=== PATIENT | female | born 1935 | race Caucasian/White ===

== ENCOUNTER → 2017-05-25 | Outpatient (CLI) | payer MEDICARE, BC ==
[~2017-05-25] MED LIST: DIPH1TAB4; LEVA500T33 PO; OXYGENDME NAS.CANULA; ROPI4TAB PO; VENTAER INH
[2017-05-25 10:58] LABS: HEMATOCRIT 34.6 % (35.0-46.0); HEMOGLOBIN 11.6 GM/DL (11.6-15.3); MEAN CELL VOLUME 86.1 FL (80.0-100.0); MEAN CORPUSCULAR HEMOGLOBIN 28.8 PG (27.0-34.0); MEAN CORPUSCULAR HGB CONC 33.5 % (32.0-36.0); MEAN PLATELET VOLUME 7.3 FL (7.0-11.0); PLATELET COUNT 534 TH/MM3 (150-450); RED BLOOD COUNT 4.02 MIL/MM3 (4.00-5.30); RED CELL DISTRIBUTION WIDTH 13.3 % (11.6-17.2); WHITE BLOOD COUNT 13.7 TH/MM3 (4.0-11.0)
[2017-05-25 11:09] LABS: INTERNATIONAL NORMALIZED RATIO 1.2 RATIO; PROTHROMBIN TIME - PATIENT 11.8 SEC (9.8-11.6)
[2017-05-25 11:27] LABS: BICARBONATE 26.1 MEQ/L (21.0-32.0); CALCIUM 9.7 MG/DL (8.5-10.1); CREATININE 0.82 MG/DL (0.50-1.00)
--- NOTE | 2017-05-26 18:23 | EKG ---
Date Performed: 05/25/2017 Time Performed: 10:56:21 PTAGE: 82 years EKG: Sinus rhythm WITH SINUS ARRHYTHMIA NORMAL ECG Compared to PREVIOUS TRACING , no change. PREVIOUS TRACING DOCTOR: Toby Brown Interpretating Date/Time 05/26/2017 18:20:47
== END ==
LOC: CPRE 10:30
PROVIDERS: ATTEND Internal Medicine
DX: Z01.810 Encounter for preprocedural cardiovascular examination (principal); Z01.812 Encounter for preprocedural laboratory examination; C34.90 Malignant neoplasm of unspecified part of unspecified bronchus or lung; R59.0 Localized enlarged lymph nodes; R22.2 Localized swelling, mass and lump, trunk
CPT/HCPCS: 36415; 80048; 85027; 85610; 85730; 93005

== ENCOUNTER 2017-05-29 13:12 | Day surgery (SDC) | payer MEDICARE, BC ==
--- NOTE | 2017-05-24 15:57 | MB ---
cc: El Flynn MD, Barry MD DATE OF CONSULT: 05/29/2017 HISTORY OF PRESENT ILLNESS: Ms. Cline is an 82-year-old white female who presents today with a 2-week history of intermittent hemoptysis, scant amount, but consistent, and a cough for 4 or 5 weeks. Initially, antibiotics were given, ineffective, so a CT scan was done and she has a 6 cm cavitary mass in the right lower lobe with associated adenopathy. This is suspicious for malignancy. She has been remarkably healthy her entire life. She has never smoked, had no previous pulmonary disease, no prior history of malignancy. She has not lost her appetite, lost weight. She is in no pain. The cough and scant hemoptysis are really her only symptoms. No fever. PAST MEDICAL HISTORY: Remarkably negative. She has some tremors, but she has had no previous hospitalizations, no major surgeries, no major medical illnesses. MEDICATIONS: The only prescription medicine is ropinirole, which is given for tremors. ALLERGIES: NO ALLERGIES. FAMILY HISTORY: Father of cancer, mother of heart failure. Lost a brother to cancer as well and a son who of pneumonia. Another son who lives in [place]. SOCIAL HISTORY: . Living with her of 50 years. She is originally from [place]. She arrived in this country in 1964. Lived in [place] for many years, has lived in this area for 18 years. 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 She has had tuberculin skin tests in the past. They have never been positive. No unusual animal exposure. No alcohol use. REVIEW OF SYSTEMS: Weight is stable. Appetite is good. No visual complaints. No chest pain. No swelling. No musculoskeletal complaints. No history of severe reflux or ulcer disease. PHYSICAL EXAMINATION: Blood pressure 100/50, pulse 100, temp is 98, RR 18, sat 97% room air. Pharynx is clear. No adenopathy palpable in the neck or the supraclavicular region. She does have some wheezing and congestion at the right base, otherwise clear. Regular rhythm, no harsh murmur. Neck veins are flat. No edema or cyanosis. Ms. Cline presents with a mass in her right lower lobe with associated hilar and paramediastinal adenopathy very suspicious for malignancy. I have suggested to her that we proceed with a diagnostic bronchoscopy. I have reviewed the procedure in simple terms so that she understands what it involves and what we can expect. I have also discussed complications including although not limited to bleeding or pneumothorax or anesthetic complications. She also understands that this test may not be diagnostic, in which case we might have to proceed to additional studies. She is agreeable to proceed. We are doing preoperative planning and schedule this for next week. Further diagnostic and/or therapeutic intervention will depend on results of this study. R. Ozzie Flynn MD RSW/TI , 04:26 PM , 05:10 PM
[~2017-05-29] VITALS: Ht 162.6 cm; Wt 63.2 kg
[~2017-05-29 13:12] MED LIST changes: -DIPH1TAB4; -LEVA500T33 PO; -OXYGENDME NAS.CANULA; -VENTAER INH
[2017-05-29] MEDS ORDERED: DIPH1TAB4 (13:30)
[2017-05-29 14:04] VITALS: BP 128/67; PULSE 110; RESP 18; O2SAT 96
[2017-05-29] MEDS ORDERED: RESP: LIDOCAINE HCL 4% PF 5 ML NEB ONE (15:32)
[2017-05-29] MEDS ORDERED: RESP: ALBUTEROL CONC 2.5 MG/0.5 ML NEB ONE (15:32)
[2017-05-29] MEDS ORDERED: RESP: ALBUTEROL 2.5 MG/IPRATROPIUM 0.5 MG NEB (PRN) NEB ×2 (17:15→21:15)
[2017-05-29] MEDS ORDERED: DO NOT ADM ANY ANTICOAGULANT DRUGS PRN (17:30)
--- NOTE | 2017-05-29 17:56 | MR ---
cc: El Flynn MD DATE: 05/29/2017 PROCEDURE PERFORMED: Bronchoscopy. INDICATIONS FOR PROCEDURE: Mediastinal adenopathy with right lower lobe mass with cavity, suspected malignancy. DETAILS OF PROCEDURE: After informed consent was obtained, the patient underwent diagnostic bronchoscopy with general anesthesia. Initial examination of the airway revealed a normal left upper lobe, middle lobe and lower lobes. Examination of the right main stem bronchus was normal. Right upper lobe was normal, but there was irregularity to the mucosa and thickened mucosa in the bronchus intermedius leading into the right lower lobe. There was also irregular plaquing of 2 of the segments of the right lower lobe. No obvious endobronchial mass was noted. After inspection of the airway in light of the abnormal CT scan, endobronchial ultrasound was used to identify subcarinal lymph nodes. These were aspirated several times and a preliminary CORAL interpretation was malignant cells were present. Two more passes were obtained from the subcarinal station #7 lymph node and submitted for cytology. Right lower lobe was then washed extensively, brushed for cytology and 2 bronchial biopsies were obtained from the right lower lobe from the areas of irregular mucosal thickening and plaquing. In summary, there appears to be a malignancy originating in the right lower lobe. A definitive identity will require further investigation on material submitted. Material also submitted for cultures. She tolerated the procedure well, without apparent complication. No excessive bleeding. Being prepared for transfer to recovery at present. El Flynn MD RSW/CORTNEY , 05:17 PM , 05:55 PM
[2017-05-29] MEDS ORDERED: methylPREDNISolone SOD SUCC 125 MG/2 ML VIAL ONE (18:05)
[2017-05-29] MEDS ORDERED: *RESP: ALBUTEROL 2.5 MG/3 ML NEB (PRN) PERIprocedural Use ONLY NEB ONE (18:05)
[2017-05-29] MEDS ORDERED: methylPREDNISolone SOD SUCC 125 MG/2 ML VIAL IV ONE (18:15)
[2017-05-29] MEDS ORDERED: SODIUM CHLORIDE 0.9% FLUSH 10 ML FLUSH IV FLUSH PRN (21:15)
[2017-05-29] MEDS ORDERED: NALOXONE HCL 0.4 MG/ML AMP IV PUSH PRN (21:15)
[2017-05-29] MEDS ORDERED: RESP: ALBUTEROL 2.5 MG/IPRATROPIUM 0.5 MG NEB (SCH) NEB (22:00)
--- NOTE | 2017-05-29 22:10 | RADRPT ---
EXAM DATE/TIME: 05/29/2017 21:28 [facility] COMPARISON: No previous studies available for comparison. INDICATIONS : Post bronchoscope. MEDICAL HISTORY : None. SURGICAL HISTORY : Hysterectomy. ENCOUNTER: Initial ACUITY: 1 day PAIN SCORE: 0/10 LOCATION: Bilateral chest FINDINGS: A single view of the chest demonstrates right-sided perihilar and basilar consolidation most characte ristic of aspiration or pneumonia. Heart size enlarged. Minimal left basilar opacity. CONCLUSION: 1. No pneumothorax status post reported bronchoscopy. Consolidation at right lung base. Bigg Gresham MD on May 29, 2017 at 22:07 Board Certified Radiologist. This report was verified electronically.
--- NOTE | 2017-05-29 23:52 | HHI.HP ---
HPI Service [facility] Primary Care Physician Non-Staff Admission Diagnosis Diagnoses: Travel History International Travel<30 Days: No Contact w/Intl Traveler <30 Da: No Traveled to Known Affected Are: No History of Present Illness History from patient, patient's crane engineer with the phone, and nursing staff. Patient reported that she has been short of breath for the past 3 weeks. She reports she was also extremely weak and just not having any energy. She reports she was wheezing throughout the day and night. Coughing quite a bit. Reports of copious sputum production. States she had to use napkins after napkins for this. There was also blood in her sputum initially and now that has resolved. However, patient denies any fever. Denies peripheral edema. Denies dizziness/chest pain/palpitations/syncopal episodes. Reports of extreme weakness and not eating well for past 3 weeks. He has lost 20 pounds in 3 weeks. Not on antibiotics as an outpatient. She denies any prior medical history apart from restless leg syndrome which was just diagnosed about 3 weeks ago simply because she was complaining of restless lack symptoms when she cannot sleep due to dyspnea. Today, patient underwent bronchoscopy with her crane engineer. According to the nurses, patient was saturating well on room air 94%. However post procedure, patient required 4 L nasal cannula to keep the O2 sat at 94%. She was however asymptomatic. Not in respiratory distress. Dr Brown - PCP from [place] Review of Systems Except as stated in HPI: all other systems reviewed are Neg Past Family Social History Past Medical History chronic left shoulder dislocation which she usually puts it back herself Restless Syndrome - was told of this only because she was having symptoms in past 3 weeks due to dyspnea Past Surgical History bronchoscopy today right finger sx due to trauma from saw Allergies: Coded Allergies: No Known Allergies (Verified Allergy, Unknown, 05/29/17) Family History mother-heart problem Social History quit smoking 50yrs ; maybe smoked only for about 1 yr, 3 cigarettes a day no etoh abuse no drugs lives with of 50yrs marriage- has not been driving for 2 yrs Physical Exam Vital Signs Vital Signs Date Time Temp Pulse Resp B/P (MAP) Pulse Ox O2 Delivery O2 Flow Rate FiO2 05/29/17 20:30 96 20 106/57 (73) 90 Nasal Cannula 4 05/29/17 19:30 96 20 106/57 (73) 90 Nasal Cannula 4 18 18:30 93 20 109/61 (77) 92 Nasal Cannula 4 05/29/17 18:15 93 20 110/61 (77) 91 Nasal Cannula 4 05/29/17 18:00 93 20 111/57 (75) 92 Nasal Cannula 4 05/29/17 17:45 93 20 113/56 (75) 95 05/29/17 17:29 97.7 99 20 122/58 (79) 93 Simple Mask 6 05/29/17 14:04 110 18 128/67 (87) 96 Physical Exam GENERAL: This is a well-nourished, well-developed patient, in no apparent distress. Saturating 94% on 5 L nasal cannular SKIN: No rashes, ecchymoses or lesions. Cool and dry. HEAD: Atraumatic. Normocephalic. No temporal or scalp tenderness. EYES: No scleral icterus. No injection or drainage. ENT: Nose without bleeding, purulent drainage or septal hematoma. . Airway patent. NECK: Trachea midline. No JVD . Supple, nontender, no meningeal signs. CARDIOVASCULAR: Regular rate and rhythm without murmurs, gallops, or rubs. RESPIRATORY: Bilaterally decreased air entry. No active wheezing or rales. GASTROINTESTINAL: Abdomen soft, non-tender, nondistended. No guarding. MUSCULOSKELETAL: Extremities without clubbing, cyanosis, or edema. No calf tenderness. NEUROLOGICAL: Awake and alert. Motor and sensory grossly within normal limits Normal speech. Laboratory Date/Time Source Procedure Growth Status 05/29/17 16:45 Bronchial Washings Right Lower Lobe Fungal Smear Pending Received 05/29/17 16:45 Bronchial Washings Right Lower Lobe Fungal Culture Pending Received Caprini VTE Risk Assessment Caprini VTE Risk Assessment: Mod/High Risk (score >= 2) Caprini Risk Assessment Model Point Value = 1 Point Value = 2 Point Value = 3 Point Value = 5 Age 41-60 Minor surgery BMI > 25 kg/m2 Swollen legs Varicose veins or History of unexplained or recurrent spontaneous Oral contraceptives or hormone replacement Sepsis (< 1 month) Serious lung disease, including pneumonia (< 1 month) Abnormal pulmonary function Acute myocardial infarction Congestive heart failure (< 1 month) History of inflammatory bowel disease Medical patient at bed rest Age 61-74 Arthroscopic surgery Major open surgery (> 45 min) Laparoscopic surgery (> 45 min) Malignancy Confined to bed (> 72 hours) Immobilizing plaster cast Central venous access Age >= 75 History of VTE Family history of VTE Factor V Leiden Prothrombin [id number] Lupus anticoagulant Anticardiolipin antibodies Elevated serum homocysteine Heparin-induced thrombocytopenia Other congenital or acquired thrombophilia Stroke (< 1 month) Elective arthroplasty Hip, pelvis, or leg fracture Acute spinal cord injury (< 1 month) Prophylaxis Regimen Total Risk Factor Score Risk Level Prophylaxis Regimen 0-1 Low Early ambulation 2 Moderate Order ONE of the following: *Sequential Compression Device (SCD) *Heparin 5000 units SQ BID 3-4 Higher Order ONE of the following medications: *Heparin 5000 units SQ TID *Enoxaparin/Lovenox 40 mg SQ daily (WT < 150 kg, CrCl > 30 mL/min) *Enoxaparin/Lovenox 30 mg SQ daily (WT < 150 kg, CrCl > 10-29 mL/min) *Enoxaparin/Lovenox 30 mg SQ BID (WT < 150 kg, CrCl > 30 mL/min) AND/OR *Sequential Compression Device (SCD) 5 or more Highest Order ONE of the following medications: *Heparin 5000 units SQ TID (Preferred with Epidurals) *Enoxaparin/Lovenox 40 mg SQ daily (WT < 150 kg, CrCl > 30 mL/min) *Enoxaparin/Lovenox 30 mg SQ daily (WT < 150 kg, CrCl > 10-29 mL/min) *Enoxaparin/Lovenox 30 mg SQ BID (WT < 150 kg, CrCl > 30 mL/min) AND *Sequential Compression Device (SCD) Assessment and Plan Assessment and Plan Impression: Dyspnea Status post bronchoscopy with findings suggestive of malignancy Hypoxia post bronchoscopy Suspects underlying postobstructive pneumonia. History of chronic left shoulder dislocation which she usually puts it back herself Restless Syndrome - was told of this only because she was having symptoms in past 3 weeks due to dyspnea Plan: Will admit patient under observation for hypoxia. We'll try to wean her off oxygen overnight. PT evaluation. Chest x-ray stat. Chest x-ray personally reviewed. Evidence of pneumothorax. Obtain basic labs. Labs from May 25, 2017 reviewed. Suspects the patient is also having underlying postobstructive pneumonia. She does report of cough. No fever. Hypoxia may be partly due to that. Discussed this with patient's crane engineer over the fall. At this point, advised to hold off on antibiotics since the bronchial washings and cultures will be likely resulted by the morning. However if patient spikes fever, advised to start her on antibiotics. We'll follow her clinically and follow her for fever, leukocytosis. Case management consult. First possibility the patient may need home oxygen at discharge because of extensive procedural manipulation and underlying infection with possible malignancy. Discussed Condition With Patient, patient's crane engineer, nursing staff Mitchell Lee MD May 29, 2017 23:52
[2017-05-30] MEDS ORDERED: SODIUM CHLORIDE 0.9% FLUSH 10 ML FLUSH IV FLUSH SCH (09:00)
[2017-05-30] MEDS ORDERED: RESP: ALBUTEROL 2.5 MG/3 ML NEB (PRN) INH (09:30)
--- NOTE | 2017-05-30 09:31 | HHI.PR ---
Subjective Remarks Follow-up hypoxia. Currently on room air. She is feeling better because she is eating more. Still weak. Discussed with pulmonary and nursing Objective Vitals Vital Signs Date Time Temp Pulse Resp B/P (MAP) Pulse Ox O2 Delivery O2 Flow Rate FiO2 05/30/17 08:00 98.3 90 16 115/65 (82) 92 Room Air 05/30/17 07:00 91 15 93/65 (74) 96 Nasal Cannula 2 05/30/17 04:01 77 16 114/58 (76) 93 Nasal Cannula 4 05/30/17 03:13 79 16 107/59 (75) 92 Nasal Cannula 4 05/30/17 02:00 80 18 98/57 (71) 93 Nasal Cannula 4 05/30/17 00:00 88 20 105/59 (74) 94 Nasal Cannula 4 05/29/17 23:00 89 20 102/58 (73) 91 Nasal Cannula 4 05/29/17 22:00 86 16 98/54 (69) 92 Nasal Cannula 4 05/29/17 21:00 87 20 103/58 (73) 92 Nasal Cannula 4 05/29/17 20:30 96 20 106/57 (73) 90 Nasal Cannula 4 05/29/17 19:30 96 20 106/57 (73) 90 Nasal Cannula 4 05/29/17 18:30 93 20 109/61 (77) 92 Nasal Cannula 4 05/29/17 18:15 93 20 110/61 (77) 91 Nasal Cannula 4 05/29/17 18:00 93 20 111/57 (75) 92 Nasal Cannula 4 05/29/17 17:45 93 20 113/56 (75) 95 05/29/17 17:29 97.7 99 20 122/58 (79) 93 Simple Mask 6 05/29/17 14:04 110 18 128/67 (87) 96 I/O 05/29/17 05/29/17 05/29/17 05/30/17 05/30/17 05/30/17 07:00 15:00 23:00 07:00 15:00 23:00 Intake Total 200 ml Balance 200 ml Intake Oral 200 ml Imaging Last Impressions Chest X-Ray 05/29/17 0000 Signed Impressions: Service Date/Time: Monday, May 29, 2017 21:28 - CONCLUSION: 1. No pneumothorax status post reported bronchoscopy. Consolidation at right lung base. Bigg Gresham MD Objective Remarks GENERAL: This is a well-nourished, well-developed patient, in no apparent distress. Saturating 94% on room air SKIN: No rashes, ecchymoses or lesions. Cool and dry. CARDIOVASCULAR: Regular rate and rhythm without murmurs, gallops, or rubs. RESPIRATORY: Bilaterally decreased air entry. No active wheezing or rales. GASTROINTESTINAL: Abdomen soft, non-tender, nondistended. No guarding. MUSCULOSKELETAL: Extremities without clubbing, cyanosis, or edema. No calf tenderness. NEUROLOGICAL: Awake and alert. Motor and sensory grossly within normal limits Normal speech. Procedures Bronch A/P Problem List: (1) Dyspnea ICD Code: R06.00 - Dyspnea, unspecified Assessment and Plan Dyspnea status post bronchoscopy with findings suggestive of malignancy. Improved. She is ambulating without difficulty. Chest x-ray without pneumothorax or acute findings. Discussed with patient's pulmonary, she can be discharged home with outpatient follow-up to discuss results of biopsy. Albuterol MDI as needed Hypoxia post bronchoscopy. Resolved currently on room air History of chronic left shoulder dislocation and Restless Syndrome - was told of this only because she was having symptoms in past 3 weeks due to dyspnea Discharge Planning Discharge patient to home Condition on discharge: Improved Regular Diet as tolerated Ad Sonia activity Rx written: Albuterol MDI Follow-up with primary care physician and pulmonary Problem Qualifiers (1) Dyspnea: Qualified Codes: R06.00 - Dyspnea, unspecified Virgil Flanagan MD May 30, 2017 09:31
[2017-05-30] MEDS ORDERED: VENTAER INH (09:32)
--- NOTE | 2017-05-30 09:33 | HHI.DCPOC ---
Discharge Care Plan Diagnosis: (1) Dyspnea Your Health Problems Are: Difficulty with ADL Exercise Tolerance Goals to Promote Your Health * To prevent worsening of your condition and complications * To maintain your health at the optimal level Directions to Meet Your Goals Take your medications as prescribed Follow your dietary instruction Follow activity as directed Keep your appointments as scheduled Take your immunizations and boosters as scheduled If your symptoms worsen call your PCP, if no PCP go to Urgent Care Center or Emergency Room Smoking is Dangerous to Your Health. Avoid second hand smoke Call the 24-hour hour crisis hotline for domestic abuse at Virgil Flanagan MD May 30, 2017 09:33
--- NOTE | 2017-05-30 09:33 | HHI.FF ---
Face to Face Verification Diagnosis: (1) Dyspnea Physical Therapy Order: Evaluate and Treat, Improve ambulation, Strength and gait training Home Health Nursing Order: Medical education Signs/symptoms of disease process Oxygen administration education Nursing assessment with vital signs I have seen patient Carley Cline on 05/30/17. My clinical findings support the need for the requested home health care services because: Patient has SOB I certify that my clinical findings support that this patient is homebound because: Unsafe to leave home unassisted Virgil Flanagan MD May 30, 2017 09:33
[2017-05-30] MEDS ORDERED: OXYGENDME NAS.CANULA (09:34)
[2017-05-30] MEDS ORDERED: RESP: ALBUTEROL 2.5 MG/IPRATROPIUM 0.5 MG NEB (SCH) INH (10:00)
[2017-05-30 10:25] VITALS: BP 99/60; PULSE 100; RESP 20; TEMP 97.9; O2SAT 95
== END 2017-05-30 10:30 | disposition home or self-care (01) ==
LOC: HROP 13:12 → HRIP 13:17 → HROP 15:30 → HRIP 15:30 → HPAC 05-30 07:53 → HROP 05-30 10:30
PROVIDERS: ATTEND Internal Medicine
DX: C34.31 Malignant neoplasm of lower lobe, right bronchus or lung (principal); R04.2 Hemoptysis; R09.02 Hypoxemia; M24.412 Recurrent dislocation, left shoulder
CPT/HCPCS: 00520; 31653; 71045; 87015; 87070; 87102; 87116; 87205; 87206; 88112; 88172; 88173; 88305; 88341; 88342; 94618; 94664; J2930; J3010; J7611; J7613; 88333

== ENCOUNTER 2017-06-22 08:17 | Day surgery (SDC) | payer MEDICARE, BC ==
[~2017-06-22] VITALS: Ht 162.6 cm; Wt 59.1 kg
[2017-06-22] VITALS (7 sets, daily range): BP systolic 101–126; BP diastolic 60–75; PULSE 80–109; RESP 16; TEMP 98; O2SAT 92–99
[~2017-06-22 08:17] MED LIST changes: +DIPH1TAB4; +OXYGENDME NAS.CANULA; +VENTAER INH
[2017-06-22] MEDS ORDERED: MEGE40TA PO (08:41)
[2017-06-22] MEDS ORDERED: PRED10 PO (08:41)
[2017-06-22] MEDS ORDERED: HYDR5SYP10 PO (08:41)
[2017-06-22] MEDS ORDERED: POVIDONE IODINE 5% (ANTISEPSIS KIT) 4 APPLICATIONS EACH NARE SCH (08:45)
[2017-06-22] MEDS ORDERED: ceFAZolin 2 GM PREMIX 50 ML - implanted port/tunneled catheter insertion IV SCH (08:45)
[2017-06-22] MEDS ORDERED: CHLORHEXIDINE GLUCONATE 2 % 1 PACK (2 CLOTHS) TOPICAL SCH (08:45)
[2017-06-22] MEDS ORDERED: VANCOMYCIN 1000 MG/NS 250 ML - implanted port/tunneled catheter IV SCH ×2 (08:45)
[2017-06-22] MEDS ORDERED: SODIUM CHLORIDE 0.9% 1000 ML IV SCH (09:00)
[2017-06-22] MEDS ORDERED: LIDOCAINE 1%/EPINEPHrine 1:100,000 SOLN 30 ML VIAL ONE (11:06)
[2017-06-22] MEDS ORDERED: MIDAZOLAM HCL 5 MG/5 ML VIAL ONE (11:10)
[2017-06-22] MEDS ORDERED: fentaNYL CITRATE 250 MCG/5 ML AMP ONE (11:10)
--- NOTE | 2017-06-22 12:44 | PD.RAD ---
Post Procedure Progress Note Pre Procedure Diagnosis: (1) Lung mass (2) Dyspnea Post Procedure Diagnosis: (1) Dyspnea (2) Lung mass Procedure Date: Jun 22, 2017 Supervising Radiologist: Luciano Seals Proceduralist/Assist: Raymundo Reyes, RT(R), Jairo Barrera, RT(R) Anesthesia: Local, Analgesia, Conscious Sedation Plan of Activity Patient to Unit: ROPU Patient Condition: Good See PACS Report for procedural detail/treatment Central Venous Access Device Procedure 1 Right Internal Jugular Infusaport Placement single lumen Divehi: 8 Luciano Seals MD Jun 22, 2017 12:44
[2017-06-22] MEDS ORDERED: SODIUM CHLORIDE 0.9% FLUSH 10 ML FLUSH IVF PRN (12:45)
--- NOTE | 2017-06-22 13:56 | RADRPT ---
EXAM DATE/TIME: 06/22/2017 12:43 [facility] COMPARISON: No previous studies available for comparison. INDICATIONS : Patient presents with lung cancer in need of port placement for chemotherapy. MEDICAL HISTORY : Restless leg syndrome Non Small cell lung cancer, adenocarcinoma SURGICAL HISTORY : Bronch ENCOUNTER: Initial ACUITY: 1 month PAIN SCORE: 0/10 LOCATION: N/A FLUORO TIME: 1.2 minutes IMAGE SERIES: 1 SEDATION TIME: 60 minutes ACCESS: Right internal jugular vein SEDATION: 1.) 4 mg midazolam (Versed) IV 2.) 200 mcg fentanyl (Sublimaze) IV Prophylactic antibiotics were administered with appropriate pre-procedure timing. Vancomycin within 2 hours of procedure, Ancef (or alternative) within 1 hour of procedure. DEVICE: 1. 8 Khmer single lumen Xcela Plus Port PROCEDURE : 1. Continuous pulse oximetry and EKG monitoring. 2. Intravenous conscious sedation. 3. Ultrasound guidance for venous access. 4. Fluoroscopic guided implantable central venous port placement. The patient was placed supine. The neck was prepped in sterile fashion. Full sterile technique was u sed, including cap, mask, sterile gloves and gown, and a large sterile sheet. Hand hygiene and 2% ch lorhexidine Betadine was utilized per protocol for cutaneous antisepsis with appropriate dry time for site. Sterile gel and sterile probe cover were utilized for ultrasound guidance. The skin and sub cutaneous tissues were infiltrated with local anesthetic solution. Under direct ultrasound guidance, central venous access was accomplished in the targeted vessel. The ultrasound images depicting access guidance were stored and saved to PACS for permanent record. A s ubcutaneous pocket was created using blunt dissection. The port was introduced to the pocket. The c atheter tubing was fed through a subcutaneous tunnel to the venotomy site. The catheter tubing was c ut to a suitable length and then was introduced through a valved Peel-Away sheath and positioned with catheter tubing tip at the cavo-atrial junction level. The pocket incision was closed with subcutic ular Vicryl suture. Steri-Strips were applied. The port was flushed and locked with heparin solutio n per protocol. Sterile dressing was applied to the site. The patient tolerated the procedure well. Conscious sedation was performed with the prescribed dosages and duration as above in the presence of an independent trained radiology nurse to assist in the monitoring of the patient. EKG and oximetry remained stable throughout the procedure. The patient tolerated the procedure well and there were no complications. The patient was sent to post anesthesia recovery in stable condition. CONCLUSION: Uncomplicated ultrasound and fluoroscopic guided implanted central venous port catheter placement as described in detail above. An 8 Khmer Power port was placed. Luciano Seals MD on June 22, 2017 at 13:53 Board Certified Radiologist. This report was verified electronically.
== END 2017-06-22 14:30 | disposition home or self-care (01) ==
LOC: HROP 08:17 → HRIP 08:20 → HROP 14:30
PROVIDERS: ATTEND Internal Medicine Hematology & Oncology
DX: C34.91 Malignant neoplasm of unspecified part of right bronchus or lung (principal); R06.00 Dyspnea, unspecified; G25.81 Restless legs syndrome
CPT/HCPCS: 36561; 76937; 77001; 99152; 99153; C1788; J0690; J1642; J2250; J3010; J3370; J7030; J7050

== ENCOUNTER 2017-08-20 13:33 | Observation (INO) | payer MEDICARE, BC ==
[~2017-08-20] VITALS: Ht 157.5 cm; Wt 50.0 kg
[~2017-08-20 13:33] MED LIST changes: -DIPH1TAB4; +HYDR5SYP10 PO; +MEGE40TA PO; -OXYGENDME NAS.CANULA; +PRED10 PO; -VENTAER INH
[2017-08-20] MEDS ORDERED: IOHEXOL 350 MG/ML 10 ML VIAL (for RAD DIAG) IVCONTRAST ONE (13:34)
[2017-08-20 14:00] VITALS: BP 113/68; PULSE 109; RESP 15; TEMP 97; O2SAT 98
[2017-08-20 15:04] VITALS: BP 124/71; PULSE 103; RESP 20; O2SAT 94
[2017-08-20 15:39] VITALS: BP 124/71; PULSE 105; RESP 20
[2017-08-20] MEDS ORDERED: SODIUM CHLORIDE 0.9% FLUSH 10 ML FLUSH IVF PRN (16:00)
--- NOTE | 2017-08-20 16:08 | PD ---
HPI Chief Complaint: Abnormal Results Time Seen by Provider: 15:06 Travel History International Travel<30 days: No Contact w/Intl Traveler<30days: No Traveled to known affect area: No History of Present Illness HPI 82-year-old female with PMH of non-small cell lung cancer presents the ED for evaluation of hypotension and tachycardia. Patient was at Dr. Yang's office this morning. At discharge the nurse noted the vitals and sent the patient to the ED. On presentation the patient complains of mid low back pain, unchanged from her previous back pain. She states that it was worse this morning when she woke up and she thought that maybe she had "slept wrong." She took a hydrocodone before her visit this morning. She denies chest pain, palpitations, shortness of breath, abdominal pain, nausea, vomiting, dysuria. She states that she "just wants to go home." is at bedside. He reports that they discontinue chemotherapy about 2 weeks ago. Patient is currently undergoing radiation treatment only. He states that the tumor is in the right lung in the lymph nodes. PFSH Past Medical History Cancer: No Cardiovascular Problems: No Diabetes: No Endocrine: No Genitourinary: No Hepatitis: No Hiatal Hernia: No Immune Disorder: No Musculoskeletal: Yes (BACK PAIN) Neurologic: Yes (RESTLESS LEG) Psychiatric: No Reproductive: No Respiratory: Yes (WHEEZING, SOB, COUGHING) Immunizations Current: No Thyroid Disease: No Past Surgical History Abdominal Surgery: No AICD: No Cardiac Surgery: No Ear Surgery: No Endocrine Surgery: No Eye Surgery: No Genitourinary Surgery: No Gynecologic Surgery: No Hysterectomy: Yes Joint Replacement: No Oral Surgery: No Pacemaker: No Thoracic Surgery: No Other Surgery: Yes Social History Alcohol Use: Yes (OCC) Tobacco Use: No Substance Use: No Allergies-Medications (Allergen,Severity, Reaction): Coded Allergies: No Known Allergies (Verified Allergy, Unknown, 06/22/17) Reported Meds & Prescriptions Reported Meds & Active Scripts Active Reported Hydrocodone-Homatropine Liq 5-1.5 Mg/5 Ml Syrp 5 Ml PO Q6H PRN Ropinirole 4 Mg Tab 4 Mg PO HS Review of Systems Except as stated in HPI: all other systems reviewed are Neg Physical Exam Narrative GENERAL: Pleasant, frail white female no acute distress. SKIN: Focused skin assessment warm/dry. HEAD: Atraumatic. Normocephalic. EYES: Pupils equal and round. No scleral icterus. No injection or drainage. ENT: No nasal bleeding or discharge. Mucous membranes pink and moist. NECK: Trachea midline. No JVD. CARDIOVASCULAR: Regular rate and rhythm. No murmur appreciated. RESPIRATORY: No accessory muscle use. Right-sided lung sounds somewhat diminished, rhonchi noted. Left lung clear. GASTROINTESTINAL: Abdomen soft, non-tender, nondistended. Hepatic and splenic margins not palpable. MUSCULOSKELETAL: No obvious deformities. No clubbing. No cyanosis. No edema. NEUROLOGICAL: Awake and alert. No obvious cranial nerve deficits. Motor grossly within normal limits. Normal speech. PSYCHIATRIC: Appropriate mood and affect; insight and judgment normal. Data Data Last Documented VS Vital Signs Date Time Temp Pulse Resp B/P (MAP) Pulse Ox O2 Delivery O2 Flow Rate FiO2 08/20/17 20:10 110 20 126/60 (82) 100 Room Air 08/20/17 14:00 97.0 Orders Orders Complete Blood Count With Diff (08/20/17 15:59) Comprehensive Metabolic Panel (08/20/17 15:59) Act Partial Throm Time (Ptt) (08/20/17 15:59) Prothrombin Time / Inr (Pt) (08/20/17 15:59) Iv Access Insert/Monitor (08/20/17 15:59) Electrocardiogram (08/20/17 15:59) Ecg Monitoring (08/20/17 15:59) Oximetry (08/20/17 15:59) Chest, Single Ap (08/20/17 15:59) Ct Pulmonary Angiogram (08/20/17 15:59) Sodium Chloride 0.9% Flush (Ns Flush) (08/20/17 16:00) Tramadol (Ultram) (08/20/17 16:15) Iohexol 350 Inj (Omnipaque 350 Inj) (08/20/17 13:34) Troponin I (08/20/17 18:23) Ckmb (Isoenzyme) Profile (08/20/17 18:23) Electrocardiogram (08/20/17 ) Sodium Chlor 0.9% 1000 Ml Inj (Ns 1000 M (08/20/17 18:45) Acetamin-Hydrocod 325-5 Mg (Ider 5-325 (08/20/17 20:00) Sodium Chlor 0.9% 1000 Ml Inj (Ns 1000 M (08/20/17 19:50) Admit Order (Ed Use Only) (08/20/17 20:52) Labs Laboratory Tests Test 08/20/17 16:20 White Blood Count 7.3 TH/MM3 Red Blood Count 3.95 MIL/MM3 Hemoglobin 10.7 GM/DL Hematocrit 32.4 % Mean Corpuscular Volume 81.9 FL Mean Corpuscular Hemoglobin 26.9 PG Mean Corpuscular Hemoglobin Concent 32.9 % Red Cell Distribution Width 20.7 % Platelet Count 388 TH/MM3 Mean Platelet Volume 7.0 FL Neutrophils (%) (Auto) 87.1 % Lymphocytes (%) (Auto) 2.5 % Monocytes (%) (Auto) 7.6 % Eosinophils (%) (Auto) 2.2 % Basophils (%) (Auto) 0.6 % Neutrophils # (Auto) 6.4 TH/MM3 Lymphocytes # (Auto) 0.2 TH/MM3 Monocytes # (Auto) 0.6 TH/MM3 Eosinophils # (Auto) 0.2 TH/MM3 Basophils # (Auto) 0.0 TH/MM3 CBC Comment DIFF FINAL Differential Comment Prothrombin Time 10.9 SEC Prothromb Time International Ratio 1.1 RATIO Activated Partial Thromboplast Time 26.9 SEC Blood Urea Nitrogen 9 MG/DL Creatinine 0.57 MG/DL Random Glucose 88 MG/DL Total Protein 6.9 GM/DL Albumin 2.7 GM/DL Calcium Level 9.0 MG/DL Alkaline Phosphatase 158 U/L Aspartate Amino Transf (AST/SGOT) 18 U/L Alanine Aminotransferase (ALT/SGPT) 14 U/L Total Bilirubin 0.3 MG/DL Sodium Level 136 MEQ/L Potassium Level 3.8 MEQ/L Chloride Level 103 MEQ/L Carbon Dioxide Level 21.6 MEQ/L Anion Gap 11 MEQ/L Estimat Glomerular Filtration Rate 101 ML/MIN Total Creatine Kinase 26 U/L Troponin I LESS THAN 0.02 NG/ML MDM Medical Decision Making Medical Screen Exam Complete: Yes Emergency Medical Condition: Yes Differential Diagnosis Lung mass versus PE versus pneumonia versus dehydration versus dysrhythmia versus other Narrative Course 82-year-old female with PMH of non-small cell lung cancer presents the ED for evaluation of hypotension and tachycardia. This occurred in the oncology building just before arrival. On presentation patient complains of back pain. No other complaints. She states that she wants to go home. Patient was initially evaluated in the ambulance all way and eventually moved to the medical pods. Patient's afebrile, heart rate 109, O2 sats 98% on room air on presentation. On exam this is an elderly white female no acute distress. Some coarse lung sounds on the right but exam is otherwise unremarkable. Patient was administered a dose of tramadol. She is administered 1 L normal saline. EKG: Rate 113, sinus tachycardia, normal axis, no acute ST changes. Reviewed by Dr. Dr. Quiñonez Repeat EKG: Rate 105, sinus tachycardia, GA interval 151, QRS 101, QTc [address] changes. Reviewed by Dr. Quiñonez CXR: COPD changes with right bibasilar infiltrate improvement compared to previous 05/29/2017. CTA: Cavitating mass with inflammatory change in the right lower lobe. Inflammatory process versus neoplasm. Trace right pleural effusion. Scattered small nonspecific nodules left upper lobe. Right hilar adenopathy. CBC: WBC 7.3. Hemoglobin 10.7. Coags: INR 1.1. CMP: Unremarkable. I spoke with Dr. Yang. He states the patient is undergoing radiation oncology only at this point. Tachycardia continues on recheck. I discussed the results the workup with the patient and her family. Given her continued tachycardia and risk factors, recommend observation. Patient initially resistant to admission. Patient eventually agreed to admission. I spoke with Dr. Marmolejo who agrees to accept the patient the medicine service. Please see medicine notes for disposition. Donna Stevens Aug 20, 2017 16:08
--- NOTE | 2017-08-20 16:14 | RADRPT ---
EXAM DATE: 08/20/2017 4:12 PM EDT AGE/SEX: 82 years / Female INDICATIONS: Shortness of breath. CLINICAL DATA: This is the patient's initial encounter. Patient reports that signs and symptoms have been present for 1 day and indicates a pain score of 0/10. MEDICAL/SURGICAL HISTORY: None. Hysterectomy. COMPARISON: [facility] [place], CHEST SINGLE AP, 05/29/2017. . FINDINGS: The Fcisur-l-Cfxo in good position. The heart is normal in size. The mediastinal contours are within normal limits. There are COPD changes with infiltrate in the right lung base. This has mildly improved when compared to the prior study of 05/29/2017. CONCLUSION: COPD changes with right basilar infiltrate improved when compared to previous dated 05/29/2017. Electronically signed by: Jose F Morelos MD 08/20/2017 4:13 PM EDT
[2017-08-20] MEDS ORDERED: traMADol HCL 50 MG TAB PO ONE (16:15)
[2017-08-20 16:37] LABS: AUTOMATED NEUTROPHIL # 6.4 TH/MM3 (1.8-7.7); BASOPHIL % 0.6 % (0.0-2.0); EOSINOPHIL # 0.2 TH/MM3 (0-0.4); EOSINOPHIL % 2.2 % (0.0-4.0); HEMATOCRIT 32.4 % (35.0-46.0); HEMOGLOBIN 10.7 GM/DL (11.6-15.3); LYMPH % 2.5 % (9.0-44.0); LYMPHOCYTE # 0.2 TH/MM3 (1.0-4.8); MEAN CELL VOLUME 81.9 FL (80.0-100.0); MEAN CORPUSCULAR HEMOGLOBIN 26.9 PG (27.0-34.0); MEAN CORPUSCULAR HGB CONC 32.9 % (32.0-36.0); MONO % 7.6 % (0.0-8.0); MONOCYTE # 0.6 TH/MM3 (0-0.9); NEUT % 87.1 % (16.0-70.0); PLATELET COUNT 388 TH/MM3 (150-450); RED BLOOD COUNT 3.95 MIL/MM3 (4.00-5.30); RED CELL DISTRIBUTION WIDTH 20.7 % (11.6-17.2); WHITE BLOOD COUNT 7.3 TH/MM3 (4.0-11.0)
[2017-08-20 16:44] LABS: INTERNATIONAL NORMALIZED RATIO 1.1 RATIO; PROTHROMBIN TIME - PATIENT 10.9 SEC (9.8-11.6)
[2017-08-20 16:49] LABS: ALBUMIN 2.7 GM/DL (3.4-5.0); AST (GOT) 18 U/L (15-37); BICARBONATE 21.6 MEQ/L (21.0-32.0); BLOOD UREA NITROGEN 9 MG/DL (7-18); CHLORIDE 103 MEQ/L (98-107); CREATININE 0.57 MG/DL (0.50-1.00); GLOMERULAR FILTRATION RATE 101 ML/MIN (>89); GLUCOSE,RANDOM 88 MG/DL (74-106); SODIUM (NA) 136 MEQ/L (136-145)
[2017-08-20 16:51] LABS: ALKALINE PHOSPHATASE 158 U/L (45-117); ALT (GPT) 14 U/L (10-53); TOTAL BILIRUBIN ADULT 0.3 MG/DL (0.2-1.0); TOTAL PROTEIN 6.9 GM/DL (6.4-8.2)
[2017-08-20 17:23] VITALS: BP 129/63; PULSE 118; RESP 24; O2SAT 100
--- NOTE | 2017-08-20 17:28 | RADRPT ---
EXAM DATE: 08/20/2017 5:06 PM EDT AGE/SEX: 82 years / Female INDICATIONS: Elevated heart rate, low blood pressure CLINICAL DATA: This is the patient's initial encounter. Patient reports that signs and symptoms have been present for 1 day and indicates a pain score of 7/10. MEDICAL/SURGICAL HISTORY: Carcinoma, lung. Hysterectomy. RADIATION DOSE: 8.10 CTDI (mGy) COMPARISON: No prior exams available for comparison. TECHNIQUE: Volumetric scanning was performed using a multi-row detector CT scanner during bolus infu ericka of 65 ml Omnipaque 350 (iohexol) nonionic water-soluble contrast as a single exam dose. The peter a was post processed with a variety of visualization algorithms including full volume maximum intensi ty projection and sliding thin slab reformation. Using automated exposure control and adjustment of the mA and/or kV according to patient size, radiation dose was kept as low as reasonably achievable t o obtain optimal diagnostic quality images. FINDINGS: Consolidative changes are present in the right lower lobe with associated air bronchograms, pleural f luid and apparent cavity in the lower lobe with an air-fluid level. The right upper lobe is clear. Scattered small nodular opacities are present in the left upper lobe, nonspecific There is no evidence for a central pulmonary embolus. Minimal right hilar adenopathy is present. There is no axillary adenopathy. Upper abdominal contents are grossly unremarkable. CONCLUSION: 1. Cavitating mass with inflammatory changes in the right lower lobe. Inflammatory process versus ne oplasm 2. Trace right pleural effusion 3. Scattered small nonspecific nodules left upper lobe. 4. Minimal right hilar adenopathy. Electronically signed by: Ozzie Morelos MD 08/20/2017 5:27 PM EDT
[2017-08-20] MEDS ORDERED: SODIUM CHLOR 0.9% 1000 ML INJ 1,000 ML IV ONE (18:45)
[2017-08-20 19:27] LABS: TROPONIN I LESS THAN 0.02 NG/ML (0.02-0.05)
--- NOTE | 2017-08-20 19:32 | EKG ---
Date Performed: 08/20/2017 Time Performed: 15:48:40 PTAGE: 82 years EKG: Marked baseline artifact present I cannot accurately interpret EKG. Would suggest repeat EK G. DOCTOR: Smith Arellano Interpretating Date/Time 08/20/2017 19:31:49
[2017-08-20] MEDS ORDERED: SODIUM CHLOR 0.9% 1000 ML INJ 1,000 ML IV SCH ×2 (19:50→22:45)
[2017-08-20] MEDS ORDERED: ACETAMINOPHEN/HYDROcodone 325 MG/5 MG TAB PO ONE (20:00)
[2017-08-20 20:10] VITALS: BP 126/60; PULSE 110; RESP 20; O2SAT 100
[2017-08-20] MEDS ORDERED: ENOXAPARIN SODIUM 40 MG/0.4 ML SYRINGE SQ SCH (21:30)
[2017-08-20] MEDS ORDERED: ACETAMINOPHEN 325 MG TAB PO PRN (21:30)
[2017-08-20] MEDS ORDERED: SODIUM CHLORIDE 0.9% FLUSH 10 ML FLUSH IV FLUSH PRN (21:30)
[2017-08-20] MEDS ORDERED: ACETAMINOPHEN/HYDROcodone 325 MG/5 MG TAB PO PRN (21:30)
--- NOTE | 2017-08-20 21:41 | EKG ---
Date Performed: 08/20/2017 Time Performed: 17:33:58 PTAGE: 82 years EKG: SINUS TACHYCARDIA ABNORMAL RHYTHM ECG I am unable to accurately compare present EKG with pr ior EKG is prior EKG had marked artifact. PREVIOUS TRACING : 08/20/2017 15.48 DOCTOR: Smith Arellano Interpretating Date/Time 08/20/2017 21:41:02
[2017-08-20 22:16] VITALS: BP 123/64; PULSE 101; RESP 16; TEMP 97.8; O2SAT 97
--- NOTE | 2017-08-20 22:36 | HHI.HP ---
[facility] Service [facility] Primary Care Physician Unknown Admission Diagnosis tachycardia, back pain Diagnoses: Travel History International Travel<30 Days: No Contact w/Intl Traveler <30 Da: No Traveled to Known Affected Are: No History of Present Illness 82-year-old female past medical history significant for non-small cell lung cancer presents the emergency department from radiation therapy for the evaluation of tachycardia. The patient had reportedly completed her radiation treatment earlier today when her vital signs were taken and she was found to be tachycardic and sent to the emergency department for further evaluation. Her tachycardia persisted despite fluid resuscitation. She denies any chest pain or shortness of breath. Does complain of back pain that has been chronic for the past 2 years although was worse earlier today and since relieved upon receiving pain medication in the emergency department. She denies any abdominal pain. No nausea/vomiting/diarrhea. No lateralizing signs/symptoms. Review of Systems Except as stated in HPI: all other systems reviewed are Neg Past Family Social History Past Medical History Non-small cell lung cancer Restless leg syndrome Past Surgical History Port placement Reported Medications Reported Meds & Active Scripts Active Reported Hydrocodone-Homatropine Liq 5-1.5 Mg/5 Ml Syrp 5 Ml PO Q6H PRN Ropinirole 4 Mg Tab 4 Mg PO HS Allergies: Coded Allergies: No Known Allergies (Verified Allergy, Unknown, 06/22/17) Family History Negative for CAD/DM Social History Rare alcohol. Negative for tobacco and illicit drugs Physical Exam Vital Signs Vital Signs Date Time Temp Pulse Resp B/P (MAP) Pulse Ox O2 Delivery O2 Flow Rate FiO2 08/20/17 22:16 97.8 101 16 123/64 (83) 97 08/20/17 22:12 08/20/17 21:24 20 08/20/17 20:10 110 20 126/60 (82) 100 Room Air 08/20/17 19:20 20 08/20/17 17:23 118 24 129/63 (85) 100 Room Air 08/20/17 15:39 105 20 124/71 (88) Room Air 08/20/17 15:04 103 20 124/71 (88) 94 Room Air 08/20/17 14:00 97.0 109 15 113/68 (83) 98 Physical Exam GENERAL: Thin, female sitting up in the chair SKIN: No rashes, ecchymoses or lesions. Cool and dry. HEAD: Atraumatic. Normocephalic. No temporal or scalp tenderness. EYES: Pupils equal round and reactive. Extraocular motions intact. No scleral icterus. No injection or drainage. ENT: Nose without bleeding, purulent drainage or septal hematoma. Throat without erythema, tonsillar hypertrophy or exudate. Uvula midline. Airway patent. NECK: Trachea midline. No JVD or lymphadenopathy. Supple, nontender, no meningeal signs. CARDIOVASCULAR: Regular rate and rhythm without murmurs, gallops, or rubs. RESPIRATORY: Clear to auscultation. Breath sounds equal bilaterally. No wheezes , rales, or rhonchi. GASTROINTESTINAL: Abdomen soft, non-tender, nondistended. No hepato-splenomegaly , or palpable masses. No guarding. MUSCULOSKELETAL: Extremities without clubbing, cyanosis, or edema. No joint tenderness, effusion, or edema noted. No calf tenderness. NEUROLOGICAL: Awake and alert. Cranial nerves II through XII intact. Motor and sensory grossly within normal limits. Normal speech. Laboratory Laboratory Tests Test 08/20/17 16:20 White Blood Count 7.3 Red Blood Count 3.95 Hemoglobin 10.7 Hematocrit 32.4 Mean Corpuscular Volume 81.9 Mean Corpuscular Hemoglobin 26.9 Mean Corpuscular Hemoglobin Concent 32.9 Red Cell Distribution Width 20.7 Platelet Count 388 Mean Platelet Volume 7.0 Neutrophils (%) (Auto) 87.1 Lymphocytes (%) (Auto) 2.5 Monocytes (%) (Auto) 7.6 Eosinophils (%) (Auto) 2.2 Basophils (%) (Auto) 0.6 Neutrophils # (Auto) 6.4 Lymphocytes # (Auto) 0.2 Monocytes # (Auto) 0.6 Eosinophils # (Auto) 0.2 Basophils # (Auto) 0.0 CBC Comment DIFF FINAL Differential Comment Prothrombin Time 10.9 Prothromb Time International Ratio 1.1 Activated Partial Thromboplast Time 26.9 Blood Urea Nitrogen 9 Creatinine 0.57 Random Glucose 88 Total Protein 6.9 Albumin 2.7 Calcium Level 9.0 Alkaline Phosphatase 158 Aspartate Amino Transf (AST/SGOT) 18 Alanine Aminotransferase (ALT/SGPT) 14 Total Bilirubin 0.3 Sodium Level 136 Potassium Level 3.8 Chloride Level 103 Carbon Dioxide Level 21.6 Anion Gap 11 Estimat Glomerular Filtration Rate 101 Total Creatine Kinase 26 Troponin I LESS THAN 0.02 Result Diagram: 08/20/17 1620 08/20/17 1620 Caprini VTE Risk Assessment Caprini VTE Risk Assessment: Mod/High Risk (score >= 2) Caprini Risk Assessment Model Point Value = 1 Point Value = 2 Point Value = 3 Point Value = 5 Age 41-60 Minor surgery BMI > 25 kg/m2 Swollen legs Varicose veins or History of unexplained or recurrent spontaneous Oral contraceptives or hormone replacement Sepsis (< 1 month) Serious lung disease, including pneumonia (< 1 month) Abnormal pulmonary function Acute myocardial infarction Congestive heart failure (< 1 month) History of inflammatory bowel disease Medical patient at bed rest Age 61-74 Arthroscopic surgery Major open surgery (> 45 min) Laparoscopic surgery (> 45 min) Malignancy Confined to bed (> 72 hours) Immobilizing plaster cast Central venous access Age >= 75 History of VTE Family history of VTE Factor V Leiden Prothrombin [id number] Lupus anticoagulant Anticardiolipin antibodies Elevated serum homocysteine Heparin-induced thrombocytopenia Other congenital or acquired thrombophilia Stroke (< 1 month) Elective arthroplasty Hip, pelvis, or leg fracture Acute spinal cord injury (< 1 month) Prophylaxis Regimen Total Risk Factor Score Risk Level Prophylaxis Regimen 0-1 Low Early ambulation 2 Moderate Order ONE of the following: *Sequential Compression Device (SCD) *Heparin 5000 units SQ BID 3-4 Higher Order ONE of the following medications: *Heparin 5000 units SQ TID *Enoxaparin/Lovenox 40 mg SQ daily (WT < 150 kg, CrCl > 30 mL/min) *Enoxaparin/Lovenox 30 mg SQ daily (WT < 150 kg, CrCl > 10-29 mL/min) *Enoxaparin/Lovenox 30 mg SQ BID (WT < 150 kg, CrCl > 30 mL/min) AND/OR *Sequential Compression Device (SCD) 5 or more Highest Order ONE of the following medications: *Heparin 5000 units SQ TID (Preferred with Epidurals) *Enoxaparin/Lovenox 40 mg SQ daily (WT < 150 kg, CrCl > 30 mL/min) *Enoxaparin/Lovenox 30 mg SQ daily (WT < 150 kg, CrCl > 10-29 mL/min) *Enoxaparin/Lovenox 30 mg SQ BID (WT < 150 kg, CrCl > 30 mL/min) AND *Sequential Compression Device (SCD) Assessment and Plan Assessment and Plan Assessment/plan: 1. Tachycardia Resolving Heart rate currently in the mid 90s ACS rule out pending; serial troponins/EKGs Initial troponin negative EKG significant for sinus tachycardia without ST segment elevations or depressions, personally reviewed 2. Non-small cell lung cancer Currently undergoing radiation therapy Medical oncology consulted, appreciate recommendations 3. Restless leg syndrome Continue home Requip FEN N.p.o. Electrolytes: Monitor and replete as needed Una Calderon MD Aug 20, 2017 22:36
[2017-08-21] VITALS (7 sets, daily range): BP systolic 116–124; BP diastolic 61–70; PULSE 74–120; RESP 16–18; TEMP 97.7–98; O2SAT 95–98
[2017-08-21 00:22] LABS: TROPONIN I LESS THAN 0.02 NG/ML (0.02-0.05)
[2017-08-21 06:44] LABS: AUTOMATED NEUTROPHIL # 5.8 TH/MM3 (1.8-7.7); BASOPHIL % 0.7 % (0.0-2.0); EOSINOPHIL # 0.2 TH/MM3 (0-0.4); EOSINOPHIL % 3.1 % (0.0-4.0); HEMATOCRIT 31.4 % (35.0-46.0); HEMOGLOBIN 10.5 GM/DL (11.6-15.3); LYMPH % 2.6 % (9.0-44.0); LYMPHOCYTE # 0.2 TH/MM3 (1.0-4.8); MEAN CELL VOLUME 82.1 FL (80.0-100.0); MEAN CORPUSCULAR HEMOGLOBIN 27.4 PG (27.0-34.0); MEAN CORPUSCULAR HGB CONC 33.3 % (32.0-36.0); MEAN PLATELET VOLUME 7.3 FL (7.0-11.0); MONO % 6.5 % (0.0-8.0); MONOCYTE # 0.4 TH/MM3 (0-0.9); NEUT % 87.1 % (16.0-70.0); PLATELET COUNT 403 TH/MM3 (150-450); RED BLOOD COUNT 3.82 MIL/MM3 (4.00-5.30); RED CELL DISTRIBUTION WIDTH 20.7 % (11.6-17.2); WHITE BLOOD COUNT 6.6 TH/MM3 (4.0-11.0)
[2017-08-21 06:49] LABS: BICARBONATE 19.6 MEQ/L (21.0-32.0); BLOOD UREA NITROGEN 7 MG/DL (7-18); CALCIUM 8.5 MG/DL (8.5-10.1); CHLORIDE 107 MEQ/L (98-107); GLOMERULAR FILTRATION RATE 95 ML/MIN (>89); GLUCOSE,RANDOM 87 MG/DL (74-106); SODIUM (NA) 139 MEQ/L (136-145)
[2017-08-21 06:52] LABS: TROPONIN I LESS THAN 0.02 NG/ML (0.02-0.05)
[2017-08-21] MEDS ORDERED: SODIUM CHLORIDE 0.9% FLUSH 10 ML FLUSH IV FLUSH SCH (09:00)
[2017-08-21 09:04] LABS: FREE T4 1.28 NG/DL (0.76-1.46)
[2017-08-21] MEDS ORDERED: PILL SPLITTER OTHER PRN (09:45)
[2017-08-21] MEDS ORDERED: METO25TA3 PO (09:53)
--- NOTE | 2017-08-21 09:53 | MB ---
cc: Devon Hawkins MD DATE: 08/21/2017 INDICATION: Tachycardia. HISTORY OF PRESENT ILLNESS: This is a very nice 82-year-old female. She has a recent diagnosis of non-small cell lung cancer and presents secondary to persistent tachycardia. She was undergoing radiation therapy when they noticed that the heart rate was between 100 and 110 beats per minute. She has no significant symptoms, although she does feel general fatigue, which is understandable given her current therapies and morbidities. She denies any chest pain or shortness of breath. She has had occasional lightheadedness, but primarily with standing quickly. Denies any chest pain. She does report that she had a fall without significant trauma, although her left hip hurts, but she is able to ambulate without difficulty. She had telemetry with heart rates between 95 and 110 beats per minute. Generally in the 100 beats per minute range. Blood pressure is 120 mmHg systolic. PAST MEDICAL HISTORY: Non-small cell lung cancer, restless leg syndrome, port placement. REPORTED MEDICATIONS: Hydrocodone, ropinirole 4 mg at night. FAMILY HISTORY: Denies any family history of early coronary disease or sudden cardiac . SOCIAL HISTORY: Denies any alcohol, tobacco or drug use. ALLERGIES: NONE. REVIEW OF SYSTEMS: A 12-point review of systems was performed and is negative unless otherwise as noted in the history of present illness. PHYSICAL EXAMINATION: VITAL SIGNS: Temperature is 98, pulse is 100, blood pressure 116/66 mmHg. GENERAL: Alert and oriented x 3 in no acute distress. HEENT: Shows pupils reactive to light and accommodation. Extraocular movements are intact. NECK: No elevation of jugular venous distention. No thyromegaly. No lymphadenopathy, no carotid bruits. LUNGS: Clear to auscultation bilaterally. CARDIOVASCULAR: Regular with no murmurs, rubs or gallops. ABDOMEN: Nontender, nondistended with good bowel sounds. No hepatosplenomegaly. EXTREMITIES: Show no clubbing, cyanosis or edema. Good peripheral pulses. NEUROLOGIC: Cranial nerves intact. Motor, sensory grossly intact. LABORATORY DATA: WBC 6.6, hemoglobin 10.5, platelet count 403. INR is 1.1. Sodium 139, potassium 3.7, BUN 7, creatinine 0.6. Troponins negative. TSH 0.5 with T4 of 1.28. Electrocardiogram shows sinus rhythm, PACs. Telemetry shows artifact and occasional sinus tachycardia. ASSESSMENT: 1. Sinus tachycardia. 2. Non-small cell lung cancer. PLAN: Her sinus tachycardia is compensatory. She admits to not drinking enough fluids. Additionally, she is undergoing therapy with radiation. She is deconditioned. She also describes orthostatic type symptoms consistent with hypovolemia. I have recommended that she can liberate her salt intake in addition to increase her fluid intake considerably. She also has a baseline anemia. I will go ahead and start on a low dose of ferrous sulfate once daily. I am going to go ahead and start her on a low dose of metoprolol, although we really do not want to blunt this compensatory response much. She is going to followup with her 's resolution specialist. May consider outpatient Holter monitor to evaluate for heart rate variability. She has no congestive heart failure symptoms. She can have the echocardiogram performed on an outpatient basis. Devon Hawkins MD NATALIA/DL , 09:38 AM , 09:52 AM
--- NOTE | 2017-08-21 11:20 | HHI.PR ---
Subjective Remarks Patient says she is feeling well. Would like to go home. Reports pain is controlled. Denies any shortness of breath. Objective Vital Signs Date Time Temp Pulse Resp B/P (MAP) Pulse Ox O2 Delivery O2 Flow Rate FiO2 08/21/17 08:00 98.0 74 18 120/70 (87) 95 08/21/17 07:12 99 08/21/17 05:35 120 16 116/66 (83) 98 08/21/17 03:56 109 08/21/17 01:37 98.0 99 16 124/65 (84) 97 08/21/17 00:03 100 08/20/17 22:16 97.8 101 16 123/64 (83) 97 08/20/17 22:12 08/20/17 21:24 20 08/20/17 20:10 110 20 126/60 (82) 100 Room Air 08/20/17 19:20 20 08/20/17 17:23 118 24 129/63 (85) 100 Room Air 08/20/17 15:39 105 20 124/71 (88) Room Air 08/20/17 15:04 103 20 124/71 (88) 94 Room Air 08/20/17 14:00 97.0 109 15 113/68 (83) 98 Result Diagram: 08/21/1760408/21/17 06 Objective Remarks GENERAL: Patient sitting up on edge of bed. Appears comfortable. SKIN: Warm and dry. HEAD: Normocephalic. EYES: No scleral icterus. No injection or drainage. NECK: Supple, trachea midline. No JVD. CARDIOVASCULAR: Regular rate and rhythm without murmurs, gallops, or rubs. RESPIRATORY: Breath sounds equal bilaterally. No accessory muscle use. GASTROINTESTINAL: Abdomen soft, non-tender, nondistended. MUSCULOSKELETAL: No cyanosis, or edema. BACK: Nontender without obvious deformity. No CVA tenderness. A/P Assessment and Plan //Tachycardia Resolving Heart rate currently in the mid 90s ACS rule out pending; serial troponins/EKGs Initial troponin negative EKG significant for sinus tachycardia without ST segment elevations or depressions, personally reviewed = Patient cleared by cardiology for discharge on metoprolol. Follow-up with consultants as outpatient. //Non-small cell lung cancer Currently undergoing radiation therapy Medical oncology consulted, appreciate recommendations = Patient cleared by cardiology for discharge. Follow-up with oncology as outpatient. //Restless leg syndrome Continue home Requip FEN Heart healthy diet Electrolytes: Monitor and replete as needed Lovenox Discharge Planning Discharge home in good condition. Continue heart healthy diet. Activity ad willie. Please see discharge medication reconciliation for medication list. Follow-up with consultants as outpatient. Bebeto Gar MD Aug 21, 2017 11:20
--- NOTE | 2017-08-21 13:27 | MB ---
cc: Jimenez Yang MD DATE: 08/21/2017 REASON FOR CONSULTATION: Consult requested by hospitalist for followup of non-small cell lung cancer in a patient who came to the ER for tachycardia. HISTORY OF PRESENT ILLNESS: Carley is an 82-year-old, very frail, white female. She was diagnosed with non-small cell lung cancer, adenocarcinoma last May. The MRI of the brain was negative. The PET scan showed that she had uptake in the right lower lobe lung mass and right hilar mass and mediastinal lymphadenopathy and right supraclavicular lymph node. She was found to have a stage IIIB non-small cell lung cancer. She had received induction chemotherapy with carbo Platinol and Taxol in June. Then, she was started on combined concurrent radiation and chemotherapy on 07/20. Unfortunately, after a couple of cycles of the chemotherapy, she was unable to tolerate it. Therefore, I had stopped the chemotherapy a few weeks ago. She was advised to continue with the radiation therapy, which she has been doing. The patient came in yesterday for her radiation treatment. She saw Dr. Cabello as the patient was not feeling well. She was found to have sinus tachycardia and her blood pressure was low. She was sent to the emergency room. When the patient came into the emergency room, she underwent workup. The CT angiogram of the chest did not show any evidence of pulmonary embolism. She had a cavitating mass with inflammatory changes in the right lower lobe and an inflammatory process versus neoplasm. There was a trace right pleural effusion and scattered small nonspecific nodules noted in the left upper lobe. There is a minimal right hilar lymphadenopathy noted. She was given hydration. She had a blood test yesterday which showed white count of 7.3, hemoglobin 10.7, platelet count 388. The differential count is normal. The comprehensive metabolic profile is normal except the alkaline phosphatase is 158 and albumin is 2.8. ER physician commissary assistant, Agapito Stevens, who was working with the ER physician, Dr. Quiñonez, had called me to discuss her case. I have advised her that I do not know why she is still tachycardic. Certainly chemotherapy was stopped several weeks ago and it is not related to the chemotherapy nor was it related to the radiation therapy. According to the PA, the EKG was done and showed normal sinus rhythm. I advised the PA that she should consult cardiology for further evaluation and if they feel that the patient is stable to be discharged, that will be okay with me. However, I believe the PA did not follow my instructions and she had admitted the patient with [facility]. The [facility] physician, Dr. Marmolejo saw the patient and she is oncology consult. I have been asked to see her for further evaluation for the tachycardia. The patient is still in the ER under observation. Her was present at the bedside. The patient stated that she feels miserable. She did not get any sleep last night. She has restless leg syndrome and she takes Ropinirole at home. Patient did not get that medication and she was unable to sleep. She is sick and tired of being in the hospital. She wants to go home as soon as possible. She states that she is feeling fine. She has no problems and she would like to go home. She denies any chest pains. The patient is still complaining of poor appetite, which is the presenting symptom of the lung cancer. She is not able to drink that much liquid either. The rest of the review of systems is negative. PAST MEDICAL HISTORY: Restless leg syndrome, non-small cell lung cancer. PAST SURGICAL HISTORY: Bronchoscopy, [id number]. ALLERGIES: NONE. MEDICATIONS: Ropinirole. FAMILY HISTORY: None for malignancy. SOCIAL HISTORY: The patient is . She never had smoked cigarettes. She occasionally drinks alcohol. PHYSICAL EXAMINATION: GENERAL: A well-developed, very frail, white female in no apparent distress. VITAL SIGNS: Temperature 98, heart rate is 120, respiratory rate is 16, blood pressure is 116/66. HEENT: Bitemporal wasting noted. Oral mucosa is dry. NECK: No lymphadenopathy noted. LUNGS: Bilateral scattered wheezing and bibasilar rales noted. HEART: Tachycardia. ABDOMEN: Soft, nontender. EXTREMITIES: No pedal edema. NEUROLOGIC: Awake, alert, oriented x 3. SKIN: No significant lesions noted. ASSESSMENT: 1. Sinus tachycardia. The etiology of that is unknown, but I suspect that this is probably due to the dehydration. However, in spite of hydration, she remains tachycardic. 2. Stage III non-small cell lung cancer currently receiving radiation therapy alone. She is unable to tolerate combined chemotherapy and radiation, therefore, chemotherapy was stopped a few weeks ago. 3. Generalized deconditioning from malignancy as well as treatment from radiation and chemotherapy. 4. Patient continues to lose weight and unable to eat or drink as she has severe anorexia. PLAN: I have reviewed her available records and I have discussed with the patient and her regarding her clinical status. She is mildly anemic with a hemoglobin of 10.7 and this morning it was repeated and is 10.5. I do not think this mild anemia is causing the tachycardia. She is not bleeding. Some slight anemia is due to the radiation and recent chemotherapy. It is in the acceptable range as she does not require any blood transfusion. She is not neutropenic and she does not have any fever. She does not have any signs of infection, which could be causing the tachycardia. She does not have any electrolyte imbalances which could be responsible for the tachycardia. She has been ruled out for acute coronary syndrome as her troponin levels are negative. TSH has been ordered. The result of that is still pending. The patient does not have any cardiology as an outpatient. I strongly advised her that she should be evaluated by a institute director before going home. The patient is reluctant to stay. She wants to go home as soon as possible as she was unable to get any sleep last night. The ER physician commissary assistant failed to follow my orders when she called me last evening and I advised her that she should get a cardiology consult for the tachycardia as I do not know why she had tachycardia. She failed to follow the orders. Her supervising physician was Dr. Quiñonez. I did discuss with Dr. Quiñonez this morning about that incidence. I have put a consult for cardiology to see her before she is discharged as I am not a institute director and I do not know the cause of the tachycardia. Certainly dehydration is strongly possible, but she has been getting hydration through the IV, but she remains tachycardic. No oncology intervention is required from my standpoint. The patient can be discharged home from my standpoint. Thank you for asking my opinion. MD JUAN Dominguez/YVONNE , 12:41 PM , 01:26 PM
--- NOTE | 2017-08-21 14:11 | EKG ---
Date Performed: 08/21/2017 Time Performed: 05:42:24 PTAGE: 82 years EKG: Marked baseline artifact SINUS TACHYCARDIA WITH OCCASIONAL SUPRAVENTRICULAR PREMATURE COMPL EXES ABNORMAL RHYTHM ECG As stated, there is marked artifact present. Within the constraints of artif act the only difference I see is the presence of premature atrial contractions. PREVIOUS TRACING : 08/20/2017 23.13 DOCTOR: Smith Arellano Interpretating Date/Time 08/21/2017 14:10:13
--- NOTE | 2017-08-21 14:23 | EKG ---
Date Performed: 08/20/2017 Time Performed: 23:13:22 PTAGE: 82 years EKG: SINUS TACHYCARDIA ABNORMAL RHYTHM ECG No significant change from prior electrocardiogram. NO PREVIOUS TRACING DOCTOR: Smith Arellano Interpretating Date/Time 08/21/2017 14:21:52
[2017-08-21] MEDS ORDERED: METOPROLOL TARTRATE 25 MG TAB PO SCH (21:00)
[2017-08-22] MEDS ORDERED: FERROUS SULFATE 325 MG (65 MG ELEMENTAL IRON) TAB PO SCH (09:00)
== END 2017-08-21 14:06 | disposition home or self-care (01) ==
LOC: NEPE 13:33 → NEDA 20:54 → NEPGCP 22:11
PROVIDERS: ADMIT Internal Medicine; ATTEND Internal Medicine
DX: R00.0 Tachycardia, unspecified (principal); C34.90 Malignant neoplasm of unspecified part of unspecified bronchus or lung; G25.81 Restless legs syndrome; I49.1 Atrial premature depolarization; M54.9 Dorsalgia, unspecified; R94.31 Abnormal electrocardiogram [ECG] [EKG]; D64.9 Anemia, unspecified; M25.552 Pain in left hip; G89.29 Other chronic pain; W19.XXXA Unspecified fall, initial encounter
CPT/HCPCS: 71045; 71275; 80048; 80053; 82550; 84439; 84443; 84484; 85025; 85610; 85730; 93005; 96360; 96361; 99285; G0378; J7030; Q9967